=== PATIENT | female | born 1980 | race Caucasian/White ===

== ENCOUNTER 2020-10-12 12:54 | Outpatient (REF) | payer OTHER, SELFPAY ==
[2020-10-13 12:17] LABS: Lyme Abs Screen <0.90 index
[2020-10-15 12:46] LABS: Anti Nuclear Antibody Screen NEGATIVE (NEGATIVE)
== END 2020-10-12 12:55 | disposition home or self-care (01) ==
LOC: HO.LAB 12:54
PROVIDERS: PCP Internal Medicine; Visit Provider Psychiatry & Neurology Neurology
DX: G43.009 Migraine without aura, not intractable, without status migrainosus (principal)
CPT/HCPCS: 36415; 86038; 86039; 86617; 86618